=== PATIENT | female | born 1930 | race Two or more races ===

== ENCOUNTER 2018-03-13 08:27 | Outpatient (CLI) | payer OTHER ==
[~2018-03-13] VITALS: Ht 152.4 cm; Wt 41.7 kg
== END 2018-03-13 08:45 | disposition home or self-care (01) ==
LOC: OFIC 805 08:27
DX: H61.23 Impacted cerumen, bilateral (principal); H90.3 Sensorineural hearing loss, bilateral; H71.12 Cholesteatoma of tympanum, left ear; J31.0 Chronic rhinitis; H70.12 Chronic mastoiditis, left ear

== ENCOUNTER 2018-05-28 11:01 | Outpatient (CLI) | payer OTHER | END 2018-05-28 11:23 | disposition home or self-care (01) | LOC: TOM 11:01 | DX: H70.12 Chronic mastoiditis, left ear (principal); H71.12 Cholesteatoma of tympanum, left ear; H90.72 Mixed conductive and sensorineural hearing loss, unilateral, left ear, with unrestricted hearing on the contralateral side ==

== ENCOUNTER 2018-06-26 08:52 | Outpatient (CLI) | payer OTHER ==
[~2018-06-26] VITALS: Ht 152.4 cm; Wt 41.7 kg
== END 2018-06-26 09:15 | disposition home or self-care (01) ==
LOC: OFIC 805 08:52
DX: H61.23 Impacted cerumen, bilateral (principal); H71.21 Cholesteatoma of mastoid, right ear; J31.0 Chronic rhinitis; H70.12 Chronic mastoiditis, left ear